=== PATIENT | male | born 2000 | race Two or more races ===

== ENCOUNTER 2019-04-23 16:30 | Emergency (ER) | payer BC ==
[2019-04-23 17:20] VITALS: BP 108/76
--- NOTE | 2019-04-23 18:09 | UC ---
Throat Pain/Nasal Song HPI - HPI Summary HPI Summary: 19 y/o female presents to the urgent care c/o sinus congestion w/ clear nasal discharge and PND for the past 2 days. Pt reports he had subjective low grade fever yesterday w/ body aches and HILL. He has Hx of Asthma, but denies wheezing and cough, only chest congestion. Pt denies fever today, SOB, chest pain, dizziness, abdominal pain, N/v/D. He has been eating well and drinking fluids. - History of Current Complaint Chief Complaint: UCGeneralIllness Stated Complaint: HILL/FEVER/CHEST CONGESTION Time Seen by Provider: 04/23/19 18:00 Hx Obtained From: Patient Onset/Duration: Gradual Onset, Lasting Days - 2 days, Still Present, Worse Since - this morning Severity: Mild Pain Intensity: 4 - body aches and HILL Pain Scale Used: 0-10 Numeric Cough: Nonproductive Associated Signs & Symptoms: Positive: Sinus Discomfort, Nasal Discharge - clear , Fever - subjective low grade fever at home. Negative: Dysphagia, Wheezing, Rash - Epiglottits Risk Factors Epiglottis Risk Factors: Negative - Allergies/Home Medications Allergies/Adverse Reactions: Allergies Allergy/AdvReac Type Severity Reaction Status Date / Time Penicillins Allergy Hives Verified 04/23/19 17:16 Home Medications: Home Medications Cetirizine* [ZyrTEC 10 MG TAB*] 10 mg PO DAILY 04/23/19 [History Confirmed 04/23] Montelukast Sodium TAB* [Singulair TAB*] 10 mg PO DAILY 04/23/19 [History Confirmed 04/23/19] PMH/Surg Hx/FS Hx/Imm Hx Previously Healthy: Yes Respiratory History: Asthma - Surgical History Surgical History: None - Family History Known Family History: Positive: Diabetes - Social History Occupation: Student Lives: With Family Alcohol Use: Occasionally Substance Use Type: None Smoking Status (MU): Never Smoked Tobacco - Immunization History Vaccination Up to Date: Yes Review of Systems All Other Systems Reviewed And Are Negative: Yes Constitutional: Positive: Fever, Chills, Other - body aches Skin: Positive: Negative Eyes: Positive: Negative ENT: Positive: Nasal Discharge - clear, Sinus Congestion, Sinus Pain/Tenderness , Other - PND clear Respiratory: Positive: Cough - dry Cardiovascular: Positive: Negative Gastrointestinal: Positive: Negative Genitourinary: Positive: Negative Motor: Positive: Negative Neurovascular: Positive: Negative Musculoskeletal: Positive: Myalgia Neurological: Positive: Headache Psychological: Positive: Negative, Anxious Physical Exam - Summary Physical Exam Summary: VITAL SIGNS: Reviewed. GENERAL: Patient is a well developed and nourished male who is sitting comfortably in the examining table. Patient is not in any acute respiratory distress. HEAD AND FACE: No signs of trauma. No ecchymosis, hematomas or skull depressions. No sinus tenderness. EYES: PERRLA, EOMI x 2, No injected conjunctiva, no nystagmus. No photophobia. EARS: Hearing grossly intact. Ear canals and tympanic membranes are within normal limits. MOUTH: Positive pharynx with mild erythema, no exudates, No B/L tonsillar enlargement , no exudate. Uvula in midline. edematous nasal mucosa w/ clear nasal discharge, clear PND NECK: Supple, trachea is midline, Positive anterior cervical lymphadenopathy, no JVD, no carotid bruit, no c-spine tenderness, neck with full ROM. No meningeal signs, no Kernig's or brudzinskis signs. CHEST: Symmetric, no tenderness at palpation LUNGS: Clear to auscultation bilaterally. No wheezing or crackles. CVS: Regular rate and rhythm, S1 and S2 present, no murmurs or gallops appreciated. ABDOMEN: Soft, non-tender. No signs of distention. No rebound no guarding, and no masses palpated. Bowel sounds are normal. EXTREMITIES: FROM in all major joints, no edema, no cyanosis or clubbing. NEURO: Alert and oriented x 3. No acute neurological deficits. Pt follows commands. SKIN: Dry and warm Triage Information Reviewed: Yes Vital Signs: Initial Vital Signs Temp 98.0 F 04/23/19 17:17 Pulse 54 04/23/19 17:17 Resp 13 04/23/19 17:17 BP 108/76 04/23/19 17:17 Pulse Ox 100 04/23/19 17:17 Throat Pain/Nasal Course/Dx - Course Course Of Treatment: 19 y/o female presents to the urgent care c/o sinus congestion w/ clear nasal discharge and PND for the past 2 days. Pt reports he had subjective low grade fever yesterday w/ body aches and HILL. He has Hx of Asthma, but denies wheezing and cough, only chest congestion. Pt denies fever today, SOB, chest pain, dizziness, abdominal pain, N/v/D. He has been eating well and drinking fluids. Hx obtained. Rapid Influenza A&B: negative. Pt w/ URI on examination.Pt advised to take ibuprofen PO and Mucinex PO to alleviates symptoms of pain and swelling. Advised on hand washing to avoid spreading. Pt advised to rest, eat well and avoid strenuous exercise. If symptoms do not improve or worsen advised to return to the urgent care or f/u with her PCP for further evaluation and treatment. Pt understood and agreed w/ plan of care. - Differential Dx/Diagnosis Differential Diagnosis/HQI/PQRI: Influenza, Laryngitis, Mononucleosis, Pharyngitis, Sinusitis, Tonsillitis, URI Provider Diagnosis: Upper respiratory infection Discharge ED - Sign-Out/Discharge Documenting (check all that apply): Patient Departure - d/c home All imaging exams completed and their final reports reviewed: No Studies - Discharge Plan Condition: Stable Disposition: HOME Patient Education Materials: Upper Respiratory Infection (ED) Forms: *School Release Referrals: [facility] [Outside] - 3 Days Additional Instructions: 1-Please take ibuprofen PO q6-8hrs prn as instructed after meals to alleviate pain and swelling. Increase fluid intake, eat well, rest and avoid strenuous exercise. 2-Continue using Mucinex PO to alleviate cough 3-If symptoms do not improve or worsen please return to the urgent care or f/u with your PCP for further evaluation and treatment. 4- Rapid influenza A&B: negative - Billing Disposition and Condition Condition: STABLE Disposition: Home
[2019-04-23 18:24] LABS: Influenza A Molecular NEGATIVE (Negative); Influenza B Molecular NEGATIVE (Negative)
== END 2019-04-23 18:57 | disposition home or self-care (01) ==
LOC: UCCORT 16:30
DX: J06.9 Acute upper respiratory infection, unspecified (principal); J45.909 Unspecified asthma, uncomplicated; Z88.0 Allergy status to penicillin
CPT/HCPCS: 99201; G0463